=== PATIENT | female | born 1990 | race Caucasian/White ===

== ENCOUNTER → 2016-05-26 | Day surgery (SDC) | payer OTHER ==
[~2016-05-26] VITALS: Ht 177.8 cm; Wt 129.3 kg
[~2016-05-26] MED LIST: DOXYCYCLINE HY100 M2 PO; DOXYCYCLINE PO; FERROUS SULFAT325 M2 PO; IBUPROFEN400 MG PO; NORCO 5-325 TA1 EACH PO; NORCO 7.5-3251 EACH PO; TYLENOL 325MG325 MG PO; XARELTO15 MG PO; XARELTO20 MG PO
== END | disposition home or self-care (01) ==
LOC: OR 07:02
PROVIDERS: Surgery
PROC: 0H99XZZ Drainage of Perineum Skin, External Approach (ICD-10-PCS; principal; 2016-05-26 07:30)
DX: L02.214 Cutaneous abscess of groin (principal); L73.2 Hidradenitis suppurativa; F41.9 Anxiety disorder, unspecified; F32.9 Major depressive disorder, single episode, unspecified; Z82.49 Family history of ischemic heart disease and other diseases of the circulatory system; Z83.3 Family history of diabetes mellitus; Z88.0 Allergy status to penicillin; Z88.1 Allergy status to other antibiotic agents; Z98.890 Other specified postprocedural states
CPT/HCPCS: 36415; 84703; 87070; 87205; J1200; J1956; J2250; J2405; J3010; J3370; J7030; J7070; J7120

== ENCOUNTER 2020-03-19 19:38 | Outpatient (CLI) | payer OTHER ==
[~2020-03-19 19:38] MED LIST changes: +BACTRIM DS TAB1 EACH PO; +IBUPROFEN600 MG PO; +LISINOPRIL10 MG PO; +LORTAB 5-325 M1 EACH PO; +MACROBID 100 M100 MG PO; +TORADOL 10 MG T10 MG PO; +VIBRAMYCIN100 MG PO; +ZOFRAN4 MG PO
== END 2020-03-19 21:17 | disposition home or self-care (01) ==
LOC: GENOP 19:38
DX: O36.8130 Decreased fetal movements, third trimester, not applicable or unspecified (principal); Z3A.30 30 weeks gestation of pregnancy
CPT/HCPCS: 59025

== ENCOUNTER 2020-05-19 16:25 | Inpatient (IN) | payer OTHER ==
[~2020-05-19] VITALS: Ht 177.8 cm; Wt 131.5 kg
[2020-05-19 17:13] LABS: HEMOGLOBIN 9.1 gm/dl (12.3-15.3); RED BLOOD COUNT 3.6 M/UL (4.00-5.10); WHITE BLOOD COUNT 11.1 K/UL (4.5-11.0)
[2020-05-20] MEDS ORDERED: LOVENOX40 MG/0.4 SQ (12:59)
[2020-05-20] MEDS ORDERED: DOCUSATE SODIU100 MG PO (12:59)
[2020-05-20] MEDS ORDERED: HYDROCODON-ACE1 EAC4 PO (12:59)
[2020-05-20] MEDS ORDERED: IBUPROFEN600 MG PO (12:59)
[2020-05-21 06:16] LABS: HEMOGLOBIN 7.3 gm/dl (12.3-15.3)
== END 2020-05-21 18:21 | disposition home or self-care (01) | DRG 807 ==
LOC: GENOP 16:25 → OB 16:35
PROVIDERS: ADMIT Obstetrics & Gynecology
PROC: 0U7C7ZZ Dilation of Cervix, Via Natural or Artificial Opening (ICD-10-PCS; 2020-05-19)
PROC: 4A1HX4Z Monitoring of Products of Conception, Cardiac Electrical Activity, External Approach (ICD-10-PCS; 2020-05-19)
PROC: 10E0XZZ Delivery of Products of Conception, External Approach (ICD-10-PCS; principal; 2020-05-20)
PROC: 0KQM0ZZ Repair Perineum Muscle, Open Approach (ICD-10-PCS; 2020-05-20)
DX: O99.214 Obesity complicating childbirth (principal); Z37.0 Single live birth; E66.9 Obesity, unspecified; Z3A.39 39 weeks gestation of pregnancy; L73.2 Hidradenitis suppurativa; Z86.711 Personal history of pulmonary embolism; Z20.822 Contact with and (suspected) exposure to COVID-19; O70.1 Second degree perineal laceration during delivery; O99.02 Anemia complicating childbirth; D50.9 Iron deficiency anemia, unspecified
CPT/HCPCS: 36415; 51702; 81001; 83518; 85014; 85018; 85025; J1650; J2590; J2795; J3010; J7120